=== PATIENT | male | born 1970 | race Caucasian/White ===

== ENCOUNTER 2016-10-03 14:30 | Outpatient (CLI) | payer MEDICAID | END 2016-10-03 14:31 | disposition home or self-care (01) | DX: J45.909 Unspecified asthma, uncomplicated (principal) ==

== ENCOUNTER 2016-12-16 19:19 | Emergency (ER) | payer MEDICAID ==
[2016-12-16 19:23] VITALS: BP 125/87
[2016-12-16] MEDS ORDERED: HYDROcod/ACETAM 5/325 MG TABLET PO STA (19:47)
[2016-12-16] MEDS ORDERED: PENICILLIN VK 250 MG TABLET PO STA (19:47)
[2016-12-16] MEDS ORDERED: HYDROcod/ACETAM 5/325 MG TABLET ONE (19:50)
[2016-12-16] MEDS ORDERED: PENICILLIN VK 250 MG TABLET PO ONE (19:50)
--- NOTE | 2016-12-16 19:50 | ED Physician Documentation ---
PD HPI HEENT - Stated complaint Stated Complaint: TOOTH PX - Chief complaint Chief Complaint: Heent - History obtained from History obtained from: Patient, Family - History of Present Illness Timing - onset: How many days ago (4) Timing - duration: Days (4) Timing - details: Gradual onset Pain level max: 7 Pain level now: 6 Location: Tooth (L lower molar) Improves: Nothing Worsens: Temperatures, Other (chewing). No: Swalllowing, Noise, Position Associated symptoms: No: Fever, Congestion, Rhinorrhea, Trismus, Unable to swallow, Swollen nodes, Facial swelling, Headache, Cough Similar symptoms before: Has not had sx before Recently seen: Not recently seen Review of Systems Ten Systems: 10 systems reviewed and negative Constitutional: denies: Fever, Chills Ears: denies: Ear pain Nose: denies: Rhinorrhea / runny nose, Congestion Throat: denies: Sore throat Cardiac: denies: Chest pain / pressure, Calf pain Respiratory: denies: Cough GI: denies: Nausea, Vomiting Skin: denies: Rash Musculoskeletal: denies: Neck pain, Back pain Neurologic: denies: Headache PD PAST MEDICAL HISTORY - Past Medical History Cardiovascular: None Respiratory: Asthma Neuro: None Endocrine/Autoimmune: None GI: None : None HEENT: None Psych: None Musculoskeletal: None Derm: None - Past Surgical History Past Surgical History: No - Present Medications Home Medications: Ambulatory Orders Medication Instructions Recorded Confirmed Albuterol [Ventolin Hfa] 2 puffs IH Q4HR PRN 05/06/15 12/16/16 Hydrocodone/Acetaminophen 1 - 2 each PO Q6H PRN #14 tablet 12/16/16 [Hydrocodon-Acetaminophen 5-325] Penicillin V Potassium 500 mg PO Q6HR #40 tablet 12/16/16 - Allergies Allergies/Adverse Reactions: Allergies Allergy/AdvReac Type Severity Reaction Status Date / Time No Known Drug Allergies Allergy Verified 12/16/16 19:24 - Social History Does the pt smoke?: No Smoking Status: Never smoker Does the pt drink ETOH?: Yes Does the pt have substance abuse?: No - Immunizations Immunizations are current?: Yes PD ED PE NORMAL - Vitals Vital signs reviewed: Yes - General General: Alert and oriented X 3, No acute distress - HEENT HEENT: Ears normal, Moist mucous membranes - Neck Neck: Supple, no meningeal sign - Cardiac Cardiac: RRR, Strong equal pulses - Respiratory Respiratory: No respiratory distress, Clear bilaterally - Derm Derm: Warm and dry - Neuro Neuro: Alert and oriented X 3 - Psych Psych: Normal mood, Normal affect PD ED PE EXPANDED - HEENT HEENT Visual: 1 - tenderness (no swelling, no abscess.) Results - Vitals Vitals: Vital Signs - 24 hr 12/16/16 19:22 Temperature 36.4 C L Heart Rate 64 Respiratory 18 Rate Blood Pressure 125/87 H O2 Saturation 97 Oxygen O2 Source Room air PD MEDICAL DECISION MAKING - ED course Complexity details: considered differential, d/w patient ED course: Patient is a 46-year-old male who presents to the emergency department with dental pain. Tenderness to palpation over the tooth. He is well-appearing, nontoxic. Afebrile. No drainable abscess. No facial cellulitis. Patient counseled regarding signs and symptoms for which I believe and urgent re- evaluation would be necessary. Patient with good understanding of and agreement to plan and is comfortable going home at this time This document was made in part using voice recognition software. While efforts are made to proofread this document, sound alike and grammatical errors may occur. Departure - Departure Disposition: 01 Home, Self Care Clinical Impression: Pain, dental Condition: Good Instructions: ED Tooth Pain Follow-Up: your,dentist tomorrow [Other] Prescriptions: Penicillin V Potassium 500 mg PO Q6HR #40 tablet Hydrocodone/Acetaminophen [Hydrocodon-Acetaminophen 5-325] 1 - 2 each PO Q6H PRN #14 tablet PRN Reason: pain Comments: Take all antibiotics until gone. Return if you worsen. You need to follow-up with a dentist tomorrow for evaluation of your tooth. Do not drink alcohol or drive while on narcotic pain medicine. Note that many narcotic pain relievers also contain tylenol/acetaminophen. Please ensure that your total dose of acetaminophen from all sources does not exceed 3 grams (3000mg) per day. You may constipated on this medication, take a stool softener such as "Colace" twice a day while you are on it. Also recommend a kiko-tqp-[id number] laxative such as senna or MiraLAX any day that you do not have a bowel movement. If you received narcotic pain medication in the emergency department, do not drive or operate machinery for the next 24 hours. Your blood pressure was elevated today on check in to the emergency department. This does not mean that you have hypertension, it is a common phenomenon to check into the emergency department and have elevated blood pressure. I recommend that you see your primary care physician within the week to have it rechecked when you're feeling better. Discharge Date/Time: 12/16/16 19:56
== END 2016-12-16 19:56 | disposition home or self-care (01) ==
LOC: ED 19:19
DX: K08.89 Other specified disorders of teeth and supporting structures (principal); R03.0 Elevated blood-pressure reading, without diagnosis of hypertension
CPT/HCPCS: 99283; A9270

== ENCOUNTER 2021-07-14 09:05 | Outpatient (CLI) | payer MEDICAID ==
[2021-07-14 15:38] LABS: THYROID STIMULATING HORMONE 0.42 uIU/mL (0.34-5.60)
[2021-07-14 16:06] LABS: ALBUMIN 4.2 g/dL (3.2-5.5); ALBUMIN/GLOBULIN RATIO 1.1 (1.0-2.2); ALKALINE PHOSPHATASE 63 IU/L (42-121); ALT ALANINE AMINOTRANSFERASE 27 IU/L (10-60); AST ASPARTATE AMINOTRANSFERASE 30 IU/L (10-42); BUN - BLOOD UREA NITROGEN 16 mg/dL (6-20); CALCIUM 9.2 mg/dL (8.5-10.3); CARBON DIOXIDE - CO2 22 mmol/L (21-32); CHLORIDE 105 mmol/L (101-111); CHOL/HDL RATIO 4.7 (<5.0); CHOLESTEROL 258 mg/dL; CREATININE 0.7 mg/dL (0.6-1.2); GFR - MDRD 119 (>89); GLUCOSE 125 mg/dL (70-100); HDL CHOLESTEROL 55 mg/dL; LDL CHOLESTEROL,CALCULATED 193 mg/dL; LDL/HDL RATIO 3.5 (<3.6); POTASSIUM 4.3 mmol/L (3.5-5.0); SODIUM 137 mmol/L (135-145); TOTAL PROTEIN 8.1 g/dL (6.7-8.2); TRIGLYCERIDES 49 mg/dL; VLDL CHOLESTEROL 10 mg/dL
[2021-07-16 21:06] LABS: BASOPHILS % (AUTO) 0.3 %; EOSINOPHILS % (AUTO) 0.3 %; HCT - HEMATOCRIT 46.6 % (42.0-52.0); HGB - HEMOGLOBIN 15.4 g/dL (14.0-18.0); LYMPHOCYTES # (AUTO) 3.1 10^3/uL (1.5-3.5); LYMPHOCYTES % (AUTO) 31.5 %; MEAN CORPUSCULAR HEMOGLOBIN 29.6 pg (27.0-31.0); MEAN CORPUSCULAR VOLUME 89.4 fL (80.0-94.0); MEAN PLATELET VOLUME 9.6 fL (7.4-11.4); MONOCYTES % (AUTO) 9.8 %; NEUTROPHILS # (AUTO) 5.7 10^3/uL (1.5-6.6); NEUTROPHILS % (AUTO) 57.6 %; PLT - PLATELET COUNT 219 10^3/uL (130-450); RED BLOOD COUNT 5.21 10^6/uL (4.70-6.10); RED CELL DISTRIBUTION WIDTH 13.6 % (12.0-15.0); WHITE BLOOD COUNT 9.8 x10^3/uL (4.8-10.8)
== END 2021-07-14 09:06 | disposition home or self-care (01) ==
LOC: LAB.S 09:05
PROVIDERS: ATTEND Registered Nurse
DX: E78.5 Hyperlipidemia, unspecified (principal); Z13.228 Encounter for screening for other metabolic disorders; Z12.5 Encounter for screening for malignant neoplasm of prostate; Z13.29 Encounter for screening for other suspected endocrine disorder; Z13.0 Encounter for screening for diseases of the blood and blood-forming organs and certain disorders involving the immune mechanism
CPT/HCPCS: 36415; 80053; 80061; 83721; 84153; 84443; 85025

== ENCOUNTER 2021-10-23 07:14 | Outpatient (CLI) | payer MEDICAID | END 2021-10-23 07:15 | disposition home or self-care (01) | LOC: LAB.N 07:14 | PROVIDERS: ATTEND Registered Nurse | DX: R73.9 Hyperglycemia, unspecified (principal) | CPT/HCPCS: 36415; 82947 ==

== ENCOUNTER 2024-10-20 15:01 | Observation (INO) ==
[2024-10-20 15:28] LABS: BASOPHILS % (AUTO) 0.3 %; EOSINOPHILS # (AUTO) 0.1 10^3/uL (0.0-0.7); EOSINOPHILS % (AUTO) 0.9 %; HGB - HEMOGLOBIN 15.8 g/dL (14.0-18.0); LYMPHOCYTES # (AUTO) 1.5 10^3/uL (1.5-3.5); LYMPHOCYTES % (AUTO) 12.2 %; MEAN CORPUSCULAR HEMOGLOBIN 29.3 pg (27.0-31.0); MEAN CORPUSCULAR HGB CONC 32.9 g/dL (32.0-36.0); MEAN CORPUSCULAR VOLUME 88.9 fL (80.0-94.0); MEAN PLATELET VOLUME 9.3 fL (7.4-11.4); MONOCYTES # (AUTO) 1.1 10^3/uL (0.0-1.0); MONOCYTES % (AUTO) 9.1 %; NEUTROPHILS # (AUTO) 9.2 10^3/uL (1.5-6.6); PLT - PLATELET COUNT 159 10^3/uL (130-450); RED CELL DISTRIBUTION WIDTH 13.2 % (12.0-15.0); WHITE BLOOD COUNT 11.9 x10^3/uL (4.8-10.8)
--- OUTSIDE RECORDS SUMMARY | 2024-10-20 15:41 | EXTERNAL MEDICAL SUMMARY RPT | Continuity of Care Document ---
Author Organization [facility] Address [address] [facility] [address] [place] [address] Phone Results/Labs test date facility value unit notes Result panel 1 MISC TEST [facility]14 [facility] Social History date description facility
[2024-10-20 16:10] LABS: ALBUMIN 4.3 g/dL (3.2-5.5); ALBUMIN/GLOBULIN RATIO 1.3 (1.0-2.2); BILIRUBIN,TOTAL 0.7 mg/dL (0.2-1.0); CALCIUM 9.3 mg/dL (8.5-10.3); POTASSIUM 3.6 mmol/L (3.5-4.5); TOTAL PROTEIN 7.7 g/dL (6.4-8.9)
[2024-10-20 17:15] LABS: BILIRUBIN,URINE NEGATIVE (NEGATIVE); GLUCOSE, URINE (UA) NEGATIVE (NEGATIVE); KETONES,URINE (UA) NEGATIVE (NEGATIVE); LEUKOCYTE ESTERASE, URINE NEGATIVE (NEGATIVE); NITRITE,URINE NEGATIVE (NEGATIVE); OCCULT BLOOD,URINE TRACE-INTA (NEGATIVE); PROTEIN,URINE TRACE mg/dL (NEGATIVE); UROBILINOGEN,URINE 0.2 (NORMAL) E.U./dL (NORMAL)
[2024-10-20 17:31] LABS: CLARITY,URINE CLEAR (CLEAR)
[2024-10-20 17:45] LABS: BACTERIA,URINE Rare /HPF (None Seen); MUCUS,URINE Few Strands; RBC,URINE 0-5 /HPF (0-5); SQUAMOUS EPITHELIAL CELL,UR NONE SEEN (<= Few); WBC,URINE 0-3 /HPF (0-3)
[2024-10-20] MEDS ORDERED: iohexoL-300 100 ML VIAL ONE ×2 (18:24→19:13)
[2024-10-20] MEDS: iohexoL-300 100 ML VIAL IVP ONE (18:54)
--- NOTE | 2024-10-20 19:01 | ED Physician Documentation ---
History of Present Illness Stated complaint Stated Complaint: RT ABD/BACK PX,NAUSEA Chief complaint Chief Complaint: Abd Pain History obtained from History obtained from: Patient History of Present Illness Pain level max: 5 Pain level now: 4 Additonal information Additional information: Patient is a 54-year-old male who presents to the emergency department complaint of generalized abdominal pain. He states that he ate bread last night which he thinks may have been bad. Has had some nausea but no vomiting. Triage note states urinary symptoms but he denies this to me. He states that nothing seems to make the pain better or worse. No fevers or chills. No recent travel. No recent antibiotics. Review of Systems Constitutional Denies: Fever or Chills Respiratory Denies: Cough Gastrointestinal Denies: Vomiting Meds/Allgy Home Medications Ambulatory Orders Medication Instructions Recorded Confirmed hydrocodone 5 mg-acetaminophen 325 1 - 2 ea PO Q6H PRN pain #14 tabs 12/16/16 07/14/24 mg tablet penicillin V potassium 500 mg 500 mg PO Q6HR #40 tabs 12/16/16 07/14/24 tablet albuterol sulfate 90 mcg/actuation 2 puff inhalation Q 4HR PRN 07/09/24 08/17/24 aerosol inhaler (Ventolin HFA) Wheezing #8.5 grams clotrimazole 1 % topical cream 1 applic topical BID #1 5 grams 07/09/24 08/17/24 fluticasone 100 mcg-salmeterol 50 1 inh inhalation BID #60 ea 07/09/24 08/17/24 mcg/dose blistr powdr for inhalation (Advair Diskus) Allergies Allergies Allergy/AdvReac Type Severity Reaction Status Date / Time No Known Drug Allergies Allergy Verified 08/17/24 09:33 PFSH Active Problems All Active Problems (Updated 10/20/24 @ 20:09 by Lico Ramirez MD) Infarction of kidney (Acute) Acute renal arterial thrombosis (Acute) Pruritic rash (Acute) Swelling of right parotid gland (Acute) Acute otitis media, left (Acute) Acute cough (Acute) Pain, dental (Acute) Candidal balanitis (Acute) Social History Social History Smoking Status: Never smoker Relationship: Do you feel safe in your home environment?: Yes Suffered physical, verbal, emotional, or financial abuse?: No History of Abuse: No Frequency: Occasional Exam Exam Vital Signs: Vital Signs x48h Pulse Resp BP Pulse Ox 10/20/24 22:30 53 L 14 110/83 98 10/20/24 21:00 65 16 130/87 95 10/20/24 19:14 79 14 157/103 H 98 Constitutional normal general appearance and no apparent distress HENMT oropharynx normal moist mucous membranes Eyes PERRL Neck/C-Spine visual inspection normal Respiratory breath sounds equal bilaterally, normal respiratory effort and clear to auscultation bilaterally Cardiovascular normal heart rate noted and regular rhythm noted Gastrointestinal abdomen normal to inspection, abdomen soft to palpation, nontender to palpation and nondistended Genitourinary no CVA tenderness Extremities no edema Neurology speech normal Psychiatry mental status grossly normal and oriented x3 Skin skin color normal Results Vitals Vitals: Vital Signs - 24 hr 10/20/24 15:04 10/20/24 19:08 10/20/24 19:14 Temperature 36.6 C Temperature Source Skin Pulse Rate 62 79 Respiratory Rate 20 14 Blood Pressure 153/106 H 157/103 H O2 Saturation 96 98 O2 Source Room air Room air Pain Intensity 8 7 10/20/24 19:38 10/20/24 21:00 10/20/24 21:12 Temperature Temperature Source Pulse Rate 65 Respiratory Rate 16 Blood Pressure 130/87 O2 Saturation 95 O2 Source Room air Pain Intensity 5 2 5 10/20/24 22:30 Temperature Temperature Source Pulse Rate 53 L Respiratory Rate 14 Blood Pressure 110/83 O2 Saturation 98 O2 Source Room air Pain Intensity 2 Oxygen O2 Source Room air Labs Labs: Laboratory Tests 10/20/24 10/20/24 10/20/24 15:09 15:09 15:23 WBC 11.9 H RBC 5.40 Hgb 15.8 Hct 48.0 MCV 88.9 MCH 29.3 MCHC 32.9 RDW 13.2 Plt Count 159 MPV 9.3 Neut # (Auto) 9.2 H Lymph # (Auto) 1.5 [place] # (Auto) 1.1 H Eos # (Auto) 0.1 Baso # (Auto) 0.0 Absolute Nucleated RBC 0.00 Nucleated RBC % 0.0 APTT Sodium 132 L Potassium 3.6 Chloride 99 L Carbon Dioxide 27 Anion Gap 6.0 BUN 13 Creatinine 1.0 Estimated GFR (MDRD) 78 L Glucose 117 H Calcium 9.3 Total Bilirubin 0.7 AST 29 ALT 25 Alkaline Phosphatase 73 Total Protein 7.7 Albumin 4.3 Globulin 3.4 Albumin/Globulin Ratio 1.3 Lipase 21 Urine Color YELLOW Urine Clarity CLEAR Urine pH 6.0 Ur Specific [place] 1.015 Urine Protein TRACE Urine Glucose (UA) NEGATIVE Urine Ketones NEGATIVE Urine Occult Blood TRACE-INTA Urine Nitrite NEGATIVE Urine Bilirubin NEGATIVE Urine Urobilinogen 0.2 (NORMAL) Ur Leukocyte Esterase NEGATIVE Urine RBC 0-5 Urine WBC 0-3 Ur Squamous Epith Cells NONE SEEN Urine Bacteria Rare Urine Casts 0-2 Hyaline Casts 0-2 RBC Casts Urine Mucus Few Strands Ur Microscopic Review INDICATED Urine Culture Comments NOT INDICATED 10/20/24 20:03 WBC 10.3 RBC 5.32 Hgb 15.8 Hct 46.7 MCV 87.8 MCH 29.7 MCHC 33.8 RDW 13.2 Plt Count 156 MPV 9.2 Neut # (Auto) Lymph # (Auto) Hernando # (Auto) Eos # (Auto) Baso # (Auto) Absolute Nucleated RBC Nucleated RBC % APTT 26.1 Sodium Potassium Chloride Carbon Dioxide Anion Gap BUN Creatinine Estimated GFR (MDRD) Glucose Calcium Total Bilirubin AST ALT Alkaline Phosphatase Total Protein Albumin Globulin Albumin/Globulin Ratio Lipase Urine Color Urine Clarity Urine pH Ur Specific [place] Urine Protein Urine Glucose (UA) Urine Ketones Urine Occult Blood Urine Nitrite Urine Bilirubin Urine Urobilinogen Ur Leukocyte Esterase Urine RBC Urine WBC Ur Squamous Epith Cells Urine Bacteria Urine Casts Urine Mucus Ur Microscopic Review Urine Culture Comments Rads (name of study) ct abd/pelvis: Relevant Findings:: Final report received CT angio abd pelvis: Relevant Findings:: Final report received PD Medical Decision Making ED course Complexity details: reviewed results, re-evaluated patient, considered differential and d/w patient ED course: 54-year-old male with right flank pain. CT scan appears to show an infarcted right kidney. CT angio was performed that confirms what appears to be an acute thrombus in the renal artery. Started on heparin drip. Began calling around the area for transfer. Many hospitals did not have a bed with [facility] in [place] or [place] that they may have a bed. They had issues with the images being pushed. Spoke with Dr. Mildred Cm, vascular surgery who wanted to review the images prior to accepting the patient. Therefore the patient was maintained on heparin drip and signed out to Dr. Zhou. See her note for remainder of care. This document was made in part using voice recognition software. While efforts are made to proofread this document, sound alike and grammatical errors may occur. Discharge Plan Discharge Patient Disposition: 02 Transfer Acute Care Hosp Condition: Stable Clinical Impression: Acute renal arterial thrombosis, Infarction of kidney Stand Alone Forms: PCP List
[2024-10-20] MEDS: KETOROLAC 30 MG/ML VIAL IVP STA (19:08)
[2024-10-20] MEDS: HYOSCYAMINE SL 0.125 MG TABLET SL STA (19:08)
--- NOTE | 2024-10-20 19:21 | CT Report ---
PROCEDURE: CT Abdomen/Pelvis W INDICATIONS: diffuse abd pain CONTRAST: 100 ML OMNI TECHNIQUE: After the administration of intravenous contrast, a CT scan of the abdomen and pelvis was performed. Images were recorded and evaluated at appropriate window settings. Reformats: coronal and sagittal. For radiation dose reduction, the following was used: automated exposure control, adjustment of mA and/or kV according to patient size. COMPARISON: None. FINDINGS: Image quality: Diagnostic. Peritoneum: No pneumoperitoneum or ascites. Bones: Ankylosis of the left sacroiliac joint (). Lower Thorax: No acute abnormality. Liver: Normal in size and contour. Hepatic steatosis. Gallbladder: No wall thickening, stones, or pericholecystic edema. Biliary tree: No intrahepatic or extrahepatic biliary duct dilatation. Pancreas: No acute abnormality. Spleen: Normal in size. Kidneys: Wedge-shaped hypodensity of the right mid and inferior poles (66). Otherwise, no hydronephrosis or obstructive urolithiasis. Adrenals: No nodularity. Bladder: No abnormal wall thickening. : No acute abnormality. Stomach: No focal masses or abnormal distension. Bowel: Normal bowel wall diameter without obstruction. Appendix within normal limits (). Submucosal fatty infiltration of the rectosigmoid colon (). Lymph Nodes: No retroperitoneal, mesenteric, or inguinal lymphadenopathy. Vascular: No abdominal aortic aneurysm. The visualized arterial vasculature is patent. Soft tissues: No acute abnormality. IMPRESSION: 1.Sequelae of a renal infarct versus infection; the right renal artery is patent on the current examination. 2.Hepatic steatosis. 3.Left sacroiliac joint ankylosis along with submucosal fatty infiltration of the rectosigmoid colon. Please correlate with serum markers for the possibility of an underlying seronegative spondyloarthropathy/inflammatory bowel disease. Reviewed by: Joseph Peterson MD on 10/20/2024 7:19 PM PDT Approved by: Joseph Peterson MD on 10/20/2024 7:19 PM PDT Station ID: [id number]
--- NOTE | 2024-10-20 19:46 | CT Report ---
PROCEDURE: CT Angio Abdomen/Pelvis INDICATIONS: R renal infarction on CT CONTRAST: 100 mL Omnipaque 300 intravenous contrast TECHNIQUE: After the administration of intravenous contrast, 2.5 mm thick sections acquired from the diaphragm to the symphysis. 10 mm maximum-intensity projection (MIP) reformats were then acquired. For radiation dose reduction, the following was used: automated exposure control, adjustment of mA and/or kV according to patient size. COMPARISON: CT abdomen and pelvis with contrast 10/20/2024 FINDINGS: Image quality: Excellent. Peritoneum: No pneumoperitoneum or ascites. Bones: Left sacroiliac joint ankylosis. Partial right sacroiliac joint ankylosis. Lower Thorax: No acute abnormality. Liver: Normal in size and contour. Hepatic steatosis. Gallbladder: No wall thickening, stones, or pericholecystic edema. Biliary tree: No intrahepatic or extrahepatic biliary duct dilatation. Pancreas: No acute abnormality. Spleen: Normal in size. Kidneys: No hydronephrosis or obstructive urolithiasis. Reidentified wedge- shaped hypodense appearance of the middle and inferior portions of the right kidney (). Adrenals: No nodularity. Bladder: No abnormal wall thickening. : No acute abnormality. Stomach: No focal masses or abnormal distension. Bowel: Normal bowel wall diameter without obstruction. Appendix within normal limits. Submucosal fatty infiltration of the rectosigmoid colon. Lymph Nodes: No retroperitoneal, mesenteric, or inguinal lymphadenopathy. Vascular: No abdominal aortic aneurysm. Fully occlusive arterial thrombus in the right renal middle segmental artery (). Partially occlusive thrombus in the right renal artery posterior- inferior segmental artery (65). Otherwise, the celiac, superior mesenteric, inferior mesenteric, bilateral common carotid/external iliac/internal iliac arteries, and left renal artery are patent. Soft tissues: No acute abnormality. IMPRESSION: 1.Right renal segmental infarct with corresponding arterial thrombi. 2.Bilateral sacroiliac joint ankylosis with some mucosal fatty infiltration of the rectosigmoid colon. Please correlate with serum labs for an underlying seronegative spondyloarthropathy/inflammatory bowel disease. 3.Hepatic steatosis. Reviewed by: Joseph Peterson MD on 10/20/2024 7:45 PM PDT Approved by: Joseph Peterson MD on 10/20/2024 7:45 PM PDT Station ID: [id number]
[2024-10-20 20:12] LABS: HCT - HEMATOCRIT 46.7 % (42.0-52.0); HGB - HEMOGLOBIN 15.8 g/dL (14.0-18.0); MEAN CORPUSCULAR HEMOGLOBIN 29.7 pg (27.0-31.0); MEAN CORPUSCULAR HGB CONC 33.8 g/dL (32.0-36.0); MEAN CORPUSCULAR VOLUME 87.8 fL (80.0-94.0); MEAN PLATELET VOLUME 9.2 fL (7.4-11.4); RED BLOOD COUNT 5.32 10^6/uL (4.70-6.10); RED CELL DISTRIBUTION WIDTH 13.2 % (12.0-15.0); WHITE BLOOD COUNT 10.3 x10^3/uL (4.8-10.8)
[2024-10-20] MEDS: HEPARIN 25000UNITS/500ML (D5W) 25,000 UNIT/500 ML BAG IV SCH (20:27)
[2024-10-20] MEDS: HYDROmorphone 1 MG/ML CARPUJECT IVP STA (21:12)
[2024-10-21] MEDS: SODIUM CHLORIDE 0.9% 1,000 ML IV STA (01:28)
[2024-10-21] MEDS: HYDROmorphone 1 MG/ML CARPUJECT IVP STA (01:28)
--- NOTE | 2024-10-21 03:14 | ED Physician Documentation ---
ED Addendum Addendum Addendum: The patient was signed out to me at change of shift, pending possible transfer for renal artery occlusion. Contact had been made with a vascular surgeon for [facility], but they were having technical difficulties getting the images to be pushed over actually loaded into their system. After few hours, I felt that it was important for the patient's case to move forward and so we were able to contact [facility] and speak with their vascular surgeon Dr. Espino. After reviewing the images and discussing the case, Dr. Espino felt that there was not really much else to do from a vascular standpoint. He stated they would not do a thrombectomy as it has been too long since patient's symptoms started, and that at this point, the main focus is to work the patient up for one of his happened in the first place. He has recommended echocardiogram, coagulopathy workup, and anticoagulation for minimum of 3 months. He stated we could also do a CT of the chest if felt appropriate. At this point in time, I have discussed the case with Dr. Handy, her telehospitalist on-call and she has agreed to accept the patient for admission. Patient is agreeable to the plan. Final impression: 1. 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 Discharge Plan Discharge Patient Disposition: 66 [facility] DC/Xfer Condition: Stable Clinical Impression: Acute renal arterial thrombosis, Infarction of kidney Prescriptions: No Action hydrocodone-acetaminophen 1 EACH tablet 1 - 2 ea PO Q6H PRN (Reason: pain) Qty: 14 0RF penicillin V potassium 500 MG tablet 500 mg PO Q6HR Qty: 40 0RF albuterol sulfate [Ventolin HFA] 90 mcg/actuation HFA aerosol inhaler 2 puff inhalation Q4HR PRN (Reason: Wheezing) Qty: 8.5 1RF fluticasone propion-salmeterol [Advair Diskus] 100-50 mcg/dose blister with device 1 inh inhalation BID Qty: 60 0RF clotrimazole 1 % cream 1 applic topical BID Qty: 15 0RF Print Language: Cook Islander
[2024-10-21] MEDS ORDERED: SODIUM CHLORIDE FLUSH 0.9% 10 ML SYRINGE IVP PRN (05:01)
[2024-10-21] MEDS ORDERED: ACETAMINOPHEN 325 MG TABLET PO PRN (05:01)
[2024-10-21] MEDS: oxyCODONE 5 MG TABLET PO PRN (05:37)
--- NOTE | 2024-10-21 05:59 | HISTORY & PHYSICAL EXAMINATION ---
Chief Complaint Chief Complaint Chief Complaint: abdominal pain History of Present Illness Admitted From Admitted From:: home History Obtained From Records Reviewed: yes History obtained from: patient, ED physician Exam Limitations: Telemedicine History of Present Illness HPI Comment/Other: Patient with a history of asthma presented to the ED for evaluation of acute right flank and back pain. symptoms started the day prior to presentation. nothing improved the pain, movement made it worse. he denied any fevers or urinary symptoms. Initial labwork was unremarkable. CT abdomen and pelvis was obtained showing evidence of renal infarction. CTA demonstrated renal artery stenosis. The ed physician discussed these findings with the oncall vascular surgeon at [facility]. Medical management was advised. I will admit the patient for further workup and management. I performed this visit using real-time telehealth tools. Patient provided his verbal consent to perform this visit using the the telemedicine modality available. At the time of my visit, the patient was located at [facility] in the [facility]. I was located in [place]. patient's nurse Anjum was at bedside during the visit. Review of Systems Status of ROS: 10 or more systems reviewed and unremarkable except as noted in history and below PFSH Active Problems All Active Problems (Updated 10/21/24 @ 06:09 by Monica Noguera MD) Infarction of kidney (Acute) Acute renal arterial thrombosis (Acute) Pruritic rash (Acute) Swelling of right parotid gland (Acute) Acute otitis media, left (Acute) Acute cough (Acute) Pain, dental (Acute) Candidal balanitis (Acute) Medical History Medical History (Updated 10/21/24 @ 06:09 by Monica Noguera MD) Asthma Social History Social History Smoking Status: Former smoker If you are a former smoker, when did you quit? (Date/Year): 40yrs ago Do you dip or chew tobacco?: No Do you vape?: No Relationship: Level: Independent Do you feel safe in your home environment?: Yes Suffered physical, verbal, emotional, or financial abuse?: No History of Abuse: No Frequency: Occasional Meds/Allgy Home Medications Ambulatory Orders Medication Instructions Recorded Confirmed hydrocodone 5 mg-acetaminophen 325 1 - 2 ea PO Q6H PRN pain #14 tabs 12/16/16 07/14/24 mg tablet penicillin V potassium 500 mg 500 mg PO Q6HR #40 tabs 12/16/16 07/14/24 tablet albuterol sulfate 90 mcg/actuation 2 puff inhalation Q 4HR PRN 07/09/24 08/17/24 aerosol inhaler (Ventolin HFA) Wheezing #8.5 grams clotrimazole 1 % topical cream 1 applic topical BID #1 5 grams 07/09/24 08/17/24 fluticasone 100 mcg-salmeterol 50 1 inh inhalation BID #60 ea 07/09/24 08/17/24 mcg/dose blistr powdr for inhalation (Advair Diskus) Allergies Allergies Allergy/AdvReac Type Severity Reaction Status Date / Time No Known Drug Allergies Allergy Verified 08/17/24 09:33 Exam Exam Vital Signs: Vital Signs x48h Temp Pulse Pulse Resp BP BP Pulse Ox 10/21/24 05:00 65 17 103/65 99 10/21/24 04:50 36.5 C 60 16 116/79 97 10/21/24 03:00 76 22 133/67 H 99 10/21/24 01:16 87 19 133/77 H 99 10/20/24 22:30 53 L 14 110/83 98 examination as recorded was obtained from patient and staff, as well as through peripheral observation Cardiovascular normal heart rate noted Gastrointestinal abdomen normal to inspection and abdomen soft to palpation Genitourinary right flank pain Conclusion/Plan Problem List (1) Acute renal arterial thrombosis: Plan: Vascular surgery advised medical management, patient deemed out of the window for thrombectomy. will continue to manage as follows - will obtain ECHO -will complete hypercoagulable workup (protein s, protein c, antithrombin panel, factor V leiden, AMIE) -continue with anticoagulation, remain on heparin .monitor PTT and adjust for optimized management and to avoid toxicity -transitin to oral regiemtn to complet 3 month coarse of anticoagulation (2) Infarction of kidney: Plan: reviewed CT abdomen and pelvis: wedge shape density of right mid and inferior poles,consistent with infarction -manage thrombosis with anticoagulation -close monitor of renal function -follow up with nephrology out patient may be warranted for diligent monitoring (3) Asthma: Plan: home medication review. -inhaler resumed Lab Results 10/20/24 20:03 10/20/24 15:23 Diagnostic Imaging Results Diagnostic Imaging Results: positive Final report reviewed Core Measures Anticipated LOS I expect patient to be DC'd or transferred within 96 hours.: Yes DVT/VTE - Prophylaxis VTE/DVT Device ordered at admit?: Yes Telemedicine Consult Details Provider Location & Consult Time Telemedicine consultation conducted via videoconferencing?: Yes
[2024-10-21 06:44] LABS: BASOPHILS % (AUTO) 0.4 %; EOSINOPHILS # (AUTO) 0.1 10^3/uL (0.0-0.7); EOSINOPHILS % (AUTO) 1.5 %; HGB - HEMOGLOBIN 14.9 g/dL (14.0-18.0); LYMPHOCYTES # (AUTO) 1.4 10^3/uL (1.5-3.5); LYMPHOCYTES % (AUTO) 15.7 %; MEAN CORPUSCULAR HGB CONC 33.9 g/dL (32.0-36.0); MEAN CORPUSCULAR VOLUME 88.5 fL (80.0-94.0); MONOCYTES % (AUTO) 10.4 %; NEUTROPHILS # (AUTO) 6.5 10^3/uL (1.5-6.6); NEUTROPHILS % (AUTO) 71.7 %; PLT - PLATELET COUNT 146 10^3/uL (130-450); RED BLOOD COUNT 4.97 10^6/uL (4.70-6.10); RED CELL DISTRIBUTION WIDTH 13.4 % (12.0-15.0); WHITE BLOOD COUNT 9.1 x10^3/uL (4.8-10.8)
[2024-10-21] MEDS: SODIUM CHLORIDE FLUSH 0.9% 10 ML SYRINGE IVP SCH (09:27)
[2024-10-21 09:57] LABS: HCT - HEMATOCRIT 44.3 % (42.0-52.0); HGB - HEMOGLOBIN 14.8 g/dL (14.0-18.0); MEAN CORPUSCULAR HEMOGLOBIN 29.8 pg (27.0-31.0); MEAN CORPUSCULAR HGB CONC 33.4 g/dL (32.0-36.0); MEAN CORPUSCULAR VOLUME 89.1 fL (80.0-94.0); MEAN PLATELET VOLUME 9.3 fL (7.4-11.4); RED BLOOD COUNT 4.97 10^6/uL (4.70-6.10); RED CELL DISTRIBUTION WIDTH 13.3 % (12.0-15.0); WHITE BLOOD COUNT 8.7 x10^3/uL (4.8-10.8)
[2024-10-21] MEDS: FORMOTEROL FUMARATE NEB 20 MCG/2 ML INH SCH (11:03)
--- NOTE | 2024-10-21 11:44 | PHARMACY PROGRESS NOTE ---
Best Possible Medication History Admit Date and Time: 10/21/24 0314 Home Medications Medication Instructions Recorded Confirmed Type hydrocodone 5 mg-acetaminophen 325 1 - 2 ea PO Q6H PRN pain #14 tabs 12/16/16 10/21/24 Rx mg tablet albuterol sulfate 90 mcg/actuation 2 puff inhalation Q 4HR PRN 07/09/24 10/21/24 Rx aerosol inhaler (Ventolin HFA) Wheezing #8.5 grams clotrimazole 1 % topical cream 1 applic topical BID #1 5 grams 07/09/24 10/21/24 Rx fluticasone 100 mcg-salmeterol 50 1 inh inhalation BID #60 ea 07/09/24 10/21/24 Rx mcg/dose blistr powdr for inhalation (Advair Diskus) Processed by: Pharmacy (Medication Reconciliation completed by Desktop TechnicianIndia) Medications reviewed in ED?: No Medication History completed: Yes Patient Interview: Completed Secondary Source(s): Insurance records (Advair last picked up for 30 day supply on 07/09/24 per insurance records) [facility] Statement: As the person ultimately responsible for medication therapy, providers are able to order a medication from an existing home medication list in [facility] via the "Reconcile Routine" prior to Confirmation of that medication by call center support representative. Such practice is discouraged except when the physician, in their clinical judgment, deems that a medical need exists for a medication without regard to previous use.
[2024-10-21] MEDS: MORPHINE 2 MG/ML CARPUJECT IVP PRN (12:06)
--- NOTE | 2024-10-21 18:03 | ECHO Report ---
Version: 1 Study ID: [id number] Adult Echocardiogram Report Name: KELLY LOVE Study Date: 10/21/2024, 10: 41 AM BP: 111 / 69 mmHg Patient Location: [facility]^2208^01 HR: 67 bpm : 1970 (MM/DD/YYYY) Gender: Male Height: 63 in Age: 54 Years Weight: 194.007 lb Reason For Study: arterial thrombosis evaluation History: Acute renal arterial thrombosis, back pain, dyspnea Procedure: A complete two-dimensional transthoracic echocardiogram was performed (2D, M- mode, Doppler and color flow Doppler). Agitated saline study performed. The patient was comfortable and cooperative throughout the procedure. The underlying rhythm was sinus. Interpretation Summary 1. The left ventricle is normal in size. There is normal left ventricular wall thickness. The visual left ventricular ejection fraction is estimated at 55 to 60%. 2. The right ventricle is mildly dilated. The right ventricular systolic function is normal. 3. No significant valvular disease. Left Ventricle: The left ventricle is normal in size. There is normal left ventricular wall thickness. The visual left ventricular ejection fraction is estimated at 55 to 60%. No regional wall motion abnormalities are present. Right Ventricle: The right ventricle is mildly dilated. The basal right ventricular diameter measured from a right ventricular focused view is 4.6 cm. There is mild right ventricular hypertrophy. The right ventricular systolic function is normal. The tricuspid annular plane systolic excursion (TAPSE) measurement is 2.4 cm. Aortic Valve: The aortic valve is normal in structure and function. No aortic regurgitation is present. Mitral Valve: The mitral valve leaflets are structurally normal with normal motion. No evidence of mitral stenosis is seen. There is trace mitral regurgitation. Tricuspid Valve: The tricuspid valve is normal in structure and function. Mild to moderate tricuspid regurgitation present. Pulmonic Valve: The pulmonic valve is normal in structure and function. There is no pulmonic valvular stenosis. Trace pulmonic valvular regurgitation is present. Left Atrium: The left atrium is mildly dilated. The left atrial volume indexed to body surface area is 36 ml/m2. This refers to the maximal volume measured prior to mitral valve opening. Right Atrium: The right atrium is moderately dilated. The inferior vena cava is normal in diameter (<2.1cm) but collapse <50% with sniff (estimated right atrial pressure 5-10mmHg). Atrial Septum: The interatrial septum is excessively mobile. (<15mm displacement in both directions, 10mm in one direction). Atria Injection of agitated saline documented an interatrial shunt. A patent foramen ovale is present. Aorta: The diameter of the ascending aorta is 3.8 cm. The aorta at the sinus of Valsalva measures 3.8cm. Pulmonary Artery: The pulmonary artery systolic pressure, calculated from a peak tricuspid regurgitant velocity in conjunction with an estimated right atrial pressure, is 55 - 60mmHg. Pulmonary hypertension is present. Pericardium/Pleural Space: There is no pericardial effusion. CPT Codes: [id number]: Transthoracic Echo with Spectral and Color Doppler. Doppler Measurements & Calculations Ao max P.1 mmHg Ao V2 max: 173.6 cm/sec LV V1 max: 115.9 cm/sec LV V1 max P.4 mmHg LV V1 mean: 85.8 cm/sec LV V1 mean P.3 mmHg LV V1 VTI: 22.2 cm MV A max quincy: 77.2 cm/sec MV dec time: 0.23 sec MV DVI-pr: 0.92 MV E max quincy: 71.2 cm/sec PA max P.6 mmHg PA V2 max: 94.4 cm/sec RAP systole: 10.0 mmHg TR max P.8 mmHg TR max quincy: 353.0 cm/sec MMode/2D Measurements & Calculations Ao root diam: 3.6 cm EF (est.): 51.7 % ESV(sp4-el): 65.4 ml Heart Rate: 67.0 BPM Height (metric): 160.0 cm IVSd: 0.96 cm LA A4C-A/L: 21.7 cm² LA dimension: 6.4 cm LA ESV-A/L: 57.7 ml LAV(MOD-sp2): 66.2 ml LAV(MOD-sp4): 69.0 ml LVIDd: 5.6 cm LVIDs: 3.5 cm LVPWd: 0.91 cm Systolic Pressure: 111.0 mmHg TAPSE: 2.36 cm Other Measurements & Calculations Ao root diam: 3.6 cm Ao V2 max: 173.6 cm/sec BMI: 34.4 kilograms/m² BSA: 1.91 m² BSA([facility]): 2.02 m² Diastolic Pressure: 69.0 mmHg EDV(Teich): 155.4 ml EF (est.): 51.7 % EF(Teich): 66.3 % ESV(sp4-el): 65.4 ml ESV(Teich): 52.4 ml FS: 37.0 % Heart Rate: 67.0 BPM Height (metric): 160.0 cm IVSd: 0.96 cm LA A4C-A/L: 21.7 cm² LA dimension: 6.4 cm LA ESV-A/L: 57.7 ml LAV(MOD-sp2): 66.2 ml LAV(MOD-sp4): 69.0 ml LV V1 max: 115.9 cm/sec LV V1 mean: 85.8 cm/sec LV V1 mean P.3 mmHg LVIDd: 5.6 cm LVIDs: 3.5 cm LVPWd: 0.91 cm MV A max quincy: 77.2 cm/sec MV dec time: 0.23 sec MV DVI-pr: 0.92 MV E max quincy: 71.2 cm/sec MV E/A: 0.92 PA max P.6 mmHg PA V2 max: 94.4 cm/sec RAP systole: 10.0 mmHg RVSP(TR): 59.8 mmHg Systolic Pressure: 111.0 mmHg TAPSE: 2.36 cm TR max P.8 mmHg TR max quincy: 353.0 cm/sec TV max P.8 mmHg Weight (metric): 88.0 kg Lat E/e': 5.9 Med E/e': 7.8 EF(sp-el): 50.0 % Jeff Avilez MD 10/21/2024, 6: 02 PM Ordering Physician: Monica Noguera Referring Physician: Lico Ramirez Performed By: Anne Oconnell RDCS
[2024-10-21] MEDS: BUDESONIDE 0.5 MG/2 ML NEB INH SCH (19:09)
[2024-10-22 06:05] LABS: CALCIUM 8.3 mg/dL (8.5-10.3); POTASSIUM 3.7 mmol/L (3.5-4.5)
[2024-10-22 08:16] VITALS: TEMP 98.1
[2024-10-22] MEDS: DOCUSATE SODIUM 250 MG CAPSULE PO SCH (08:19)
[2024-10-22] MEDS: SENNA 8.6 MG TABLET PO SCH (08:19)
[2024-10-22] MEDS: polyethylene glycoL 3350 17 GM PACKET PO SCH (08:20)
[2024-10-22] MEDS: ENOXAPARIN 100 MG/ML SYRINGE SUBQ SCH (09:03)
--- NOTE | 2024-10-22 09:33 | Discharge Summary ---
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 symptoms started the day prior to presentation. nothing improved the pain, movement made it worse. he denied any fevers or urinary symptoms. Initial labwork was unremarkable. CT abdomen and pelvis was obtained showing evidence of renal infarction. CTA demonstrated renal artery stenosis. The ed physician discussed these findings with the oncall vascular surgeon at [facility]. Medical management was advised. I will admit the patient for further workup and management. I performed this visit using real-time telehealth tools. Patient provided his verbal consent to perform this visit using the the telemedicine modality available. At the time of my visit, the patient was located at [facility] in the [facility]. I was located in [place]. patient's nurse Anjum was at bedside during the visit. CONSULTS | PROCEDURES Consultations: Dr Espino - Vascular Surgeon from [facility] consulted by phone in ED HOSPITAL COURSE Hospital Course: Patient was admitted to the medical floor with heparin GTT initiated in the ED. Heparin GTT was continued and PTT levels were monitored appropriately and confirmed that the patient was in the therapeutic range.The remainder of his hospital course was relatively uneventful as the primary purpose was for initiation of anticoagulation which was again achieved with heparin GTT. He did have residual right flank pain at times requiring IV pain medication, but this did improve prior to discharge and the patient was amenable to pain control with p.o. pain meds alone. Prior to discharge, prescription for Pradaxa was sent to his pharmacy which his family members were able to obtain. We were able to confirm 0 [id number] cost with the patient's insurance and as such he will be able to complete a 3- month course of Pradaxa to continue outpatient anticoagulation for the renal artery thrombosis. The admitting attending did order protein s, protein c, antithrombin panel, factor V leiden, AMIE However these results are still pending at the time of discharge as they are send out labs. I recommend he follow-up with PCP to discuss results as well as to consider outpatient hematology referral. In addition to the primary diagnosis of renal artery stenosis, incidental findings were made on the CT abdomen pelvis. Of note is possible hepatosteatosis and the patient was advised about this with recommendations for dietary and lifestyle changes with outpatient monitoring. In addition, there are some findings that according to radiology may be branch customer service representative of ankylosing spondylitis. I did discuss this with the patient and recommend outpatient follow-up to consider HLA-B27, rheumatology referral, as well as further imaging as indicated. ALLERGIES Allergies Allergy/AdvReac Type Severity Reaction Status Date / Time No Known Drug Allergies Allergy Verified 08/17/24 09:33 MEDICATIONS Ambulatory Orders Medication Instructions Recorded Confirmed albuterol sulfate 90 mcg/actuation 2 puff inhalation Q 4HR PRN 07/09/24 10/21/24 aerosol inhaler (Ventolin HFA) Wheezing #8.5 grams clotrimazole 1 % topical cream 1 applic topical BID #1 5 grams 07/09/24 10/21/24 fluticasone 100 mcg-salmeterol 50 1 inh inhalation BID #60 ea 07/09/24 10/21/24 mcg/dose blistr powdr for inhalation (Advair Diskus) dabigatran etexilate 150 mg 150 mg PO BID #180 caps capsule (Pradaxa) oxycodone 5 mg tablet 5 mg PO Q4HR PRN Pain 5 to 7 #14 10/22/24 tabs polyethylene glycol 3350 17 gram 17 g PO DAILY PRN con stipation #14 10/22/24 oral powder packet ea PHYSICAL EXAM AT DISCHARGE Vital Signs: Vital Signs x48h Temp Pulse Pulse Resp BP BP Pulse Ox 10/22/24 08:16 36.7 C 65 16 107/73 94 10/22/24 07:18 70 16 10/22/24 04:17 36.9 C 61 18 111/73 95 General Appearance: positive No acute distress and Alert Respiratory: positive No respiratory distress and Breath sounds nml; negative Wheezes Cardiovascular: positive Regular rate & rhythm, No murmur and No gallop Abdomen: positive Non-tender, No organomegaly, Nml bowel sounds and No distention Skin: positive Color nml Extremities: positive Nml appearance Neurologic/Psychiatric: positive Oriented x3, CN's nml (2-12) and Motor nml LABS 05/15/25 09:48 10/22/24 05:38 DIAGNOSTIC IMAGING Diagnostic Imaging Results: Final report reviewed QUALITY (Female Hip Fx Only) Was patient sent home on osteoporosis medication?: Yes TIME SPENT Time Spent in Discharge (Minutes): 37 Discharge Plan Discharge Patient Disposition: Home, Self Care Condition: Stable Medically Cleared Date:: 10/22/24 Prescriptions: New dabigatran etexilate [Pradaxa] 150 mg capsule 150 mg PO BID Qty: 180 0RF oxycodone 5 mg Tablet 5 mg PO Q4HR PRN (Reason: Pain 5 to 7) Qty: 14 0RF polyethylene glycol 3350 17 gram Powder In Packet 17 g PO DAILY PRN (Reason: constipation) Qty: 14 0RF Continued albuterol sulfate [Ventolin HFA] 90 mcg/actuation HFA aerosol inhaler 2 puff inhalation Q4HR PRN (Reason: Wheezing) Qty: 8.5 1RF fluticasone propion-salmeterol [Advair Diskus] 100-50 mcg/dose blister with device 1 inh inhalation BID Qty: 60 0RF clotrimazole 1 % cream 1 applic topical BID Qty: 15 0RF Discontinued hydrocodone-acetaminophen 1 EACH tablet 1 - 2 ea PO Q6H PRN (Reason: pain) Qty: 14 0RF Activity Restrictions/Additional Instructions: As we discussed because you are now going to be on a blood thinner for at least the next 3 months I am going to make some recommendations of activities to be cautious of. 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 But 1 thing I would be wary of, is being on a ladder at high heights because if you were to fall and injure your head the most concerning complication of this would be a head injury that causes a brain bleed. So if at all possible I recommend you not go on tall ladders. If you are doing any sort of activity that could cause bleeding such as working with a saw, Hammer, please use extra precaution and minimize this when possible. As for your upcoming daughter's wedding in [place], I think it would be okay to travel, but please be mindful of any concerning bleeding prior to your trip. For example if you notice any dark tarry stools, please get this checked out before taking a trip. While there, please use the same precautions to avoid any head injury, so I do not recommend anything risky such as surfing, riding ATVs, or advanced hiking. But swimming, snorkeling should be okay. Diet: Regular Health Concerns: As we discussed in the hospital, you were admitted because of a blood clots in the artery that provides blood flow to the kidney. We discussed possible options for treatment including a procedure to remove the blood clot as well as using medication alone. We opted for medication alone because your kidney function appears to be doing well, and the procedure could provide extra risks that may not be worth taking given that your kidneys are doing well. So the treatment plan will be 3 months of blood thinner. I also recommend discussing a referral to oncology with your PCP. We have ordered some blood tests that are not yet available for review but when you have a follow-up with your PCP they should be able to obtain these results. In addition, we discussed some incidental findings on your CAT scan. One of them is a condition called hepatosteatosis which means an increase in fat content in the liver. This is usually a reflection of being overweight. I would recommend working on a diet and exercise program to reduce your weight, and maybe consider an ultrasound in 6 months to see if this has improved. In addition, there are some findings that may suggest a condition called ankylosing spondylitis, which is an autoimmune condition. The CAT scan cannot confirm this diagnosis, but it can suggest the possibility of it. In order to further evaluate it, there are some lab tests that your PCP can order, and it may also be worth having you see a loftsman who is a specialist in autoimmune conditions. Print Language: Syriac Patient Instructions: Anticoagulants Stand Alone Forms: PCP List Follow-up Care: Rosemary Valladares ARNP [Primary Care Provider] -"
[2024-10-22 13:09] VITALS: BP 128/79; O2SAT 96
== END 2024-10-22 13:05 | disposition home or self-care (01) ==
LOC: ED 15:01 → MS2 15:01
PROVIDERS: ADMIT Hospitalist; ATTEND Hospitalist
DX: Z87.891 Personal history of nicotine dependence; J45.909 Unspecified asthma, uncomplicated; N28.0 Ischemia and infarction of kidney